=== PATIENT | male | born 1930 | race Caucasian/White ===

== ENCOUNTER 2016-07-10 09:46 | Outpatient (CLI) | payer MEDICARE, OTHER ==
[2016-07-10 10:14] LABS: Hemoglobin 12.3 g/dL (14.0-18.0); Mean Corpuscular Hemoglobin 27.9 pg (27.0-31.0); Mean Corpuscular Volume 84.4 fl (80.0-94.0); Mean Platelet Volume 8.1 fL (7.4-10.4); Platelet Count 182 thou/uL (130-400); RBC Distribution Width 16.7 % (11.5-14.5); Red Blood Cell (RBC) Count 4.42 mill/uL (4.70-6.10); White Blood Cell (WBC) Count 3.7 thou/uL (4.8-10.8)
[2016-07-10 10:43] LABS: ALT (SGPT) 13 U/L (0-55); AST (SGOT) 18 U/L (5-34); Albumin 3.8 g/dL (3.4-4.8); Alkaline Phosphatase 93 U/L (40-150); Anion Gap 12 mmol/L (10-20); BUN (Urea Nitrogen) 20 mg/dL (8.4-25.7); Bilirubin, Total 0.4 mg/dL (0.2-1.2); CRP (Inflammatory) 0.54 mg/dL (= or < 0.5); Calc. Creatinine Clearance 0 mL/min (70-130); Calcium 9.2 mg/dL (7.8-10.44); Carbon Dioxide 26 mmol/L (23-31); Chloride 106 mmol/L (98-107); Estimated GFR-MDRD 64; Globulin 2.1 g/dL (2.4-3.5); Glucose 126 mg/dL (83-110); Potassium 4.3 mmol/L (3.5-5.1); Protein, Total 5.9 g/dL (5.8-8.1); Sodium 140 mmol/L (136-145)
== END 2016-07-10 09:47 | disposition home or self-care (01) ==
LOC: MADLAB 09:46
PROVIDERS: ATTEND Internal Medicine Rheumatology
DX: M05.9 Rheumatoid arthritis with rheumatoid factor, unspecified (principal); Z79.899 Other long term (current) drug therapy
CPT/HCPCS: 36415; 80053; 85027; 85652; 86140

== ENCOUNTER 2016-08-06 05:30 | Outpatient (CLI) | payer MEDICARE, OTHER ==
[2016-08-06 05:59] LABS: #Eosinphils 0.2 thou/uL (0.0-0.7); #Lymphocytes 0.9 thou/uL (1.20-3.40); #Monocytes 0.5 thou/uL (0.11-0.59); #Neutrophils 1.8 thou/uL (1.40-6.50); %Basophils 1.4 % (0.0-1.0); %Eosinophils 4.9 % (0.0-10.0); %Lymphocytes 26.2 % (21.0-51.0); %Monocytes 14.2 % (0.0-10.0); %Neutrophils 53.4 % (42.0-75.0); Hemoglobin 11.8 g/dL (14.0-18.0); Mean Corpuscular HGB CONC 33.5 g/dL (32.0-36.0); Mean Corpuscular Hemoglobin 28.5 pg (27.0-31.0); Mean Corpuscular Volume 85.2 fl (80.0-94.0); Mean Platelet Volume 7.8 fL (7.4-10.4); Platelet Count 182 thou/uL (130-400); RBC Distribution Width 16.6 % (11.5-14.5); Red Blood Cell (RBC) Count 4.13 mill/uL (4.70-6.10); White Blood Cell (WBC) Count 3.4 thou/uL (4.8-10.8)
[2016-08-06 06:25] LABS: MDiff Complete? YES; Manual Diff?? NO
[2016-08-06 06:51] LABS: ALT (SGPT) 13 U/L (0-55); AST (SGOT) 20 U/L (5-34); Albumin 3.4 g/dL (3.4-4.8); Alkaline Phosphatase 90 U/L (40-150); Anion Gap 13 mmol/L (10-20); BUN (Urea Nitrogen) 24 mg/dL (8.4-25.7); Bilirubin, Direct 0.2 mg/dL (0.1-0.3); Bilirubin, Total 0.4 mg/dL (0.2-1.2); Calc. Creatinine Clearance 0 mL/min (70-130); Calcium 8.8 mg/dL (7.8-10.44); Carbon Dioxide 22 mmol/L (23-31); Cardiac Risk 3.7 (Less than 4.5); Chloride 110 mmol/L (98-107); Cholesterol 152 mg/dL (< 200 Desired); Estimated GFR-MDRD 69; Glucose 96 mg/dL (83-110); HDL Cholesterol 41 mg/dL (>60 Neg Risk); LDL Cholesterol, Calculated 90 mg/dL; Potassium 4.2 mmol/L (3.5-5.1); Protein, Total 5.5 g/dL (5.8-8.1); Sodium 141 mmol/L (136-145); Triglycerides 106 mg/dL (Less than 150)
== END 2016-08-06 05:31 | disposition home or self-care (01) ==
LOC: MADLAB 05:30
PROVIDERS: ATTEND Family Medicine
DX: I10 Essential (primary) hypertension (principal)
CPT/HCPCS: 36415; 80048; 80061; 80076; 85025

== ENCOUNTER 2017-04-10 10:14 | Emergency (ER) | payer MEDICARE, OTHER ==
[2017-04-10 11:27] LABS: #Basophils 0.1 thou/uL (0.0-0.2); #Eosinphils 0.1 thou/uL (0.0-0.7); #Lymphocytes 0.4 thou/uL (1.20-3.40); #Monocytes 0.5 thou/uL (0.11-0.59); #Neutrophils 3.8 thou/uL (1.40-6.50); %Basophils 1.9 % (0.0-1.0); %Eosinophils 1.8 % (0.0-10.0); %Lymphocytes 8.4 % (21.0-51.0); %Monocytes 9.9 % (0.0-10.0); Hemoglobin 11.1 g/dL (14.0-18.0); Mean Corpuscular HGB CONC 34.7 g/dL (32.0-36.0); Mean Corpuscular Hemoglobin 33.9 pg (27.0-31.0); Mean Corpuscular Volume 97.8 fl (80.0-94.0); Mean Platelet Volume 6.6 fL (7.4-10.4); Platelet Count 192 thou/uL (130-400); RBC Distribution Width 15.7 % (11.5-14.5); Red Blood Cell (RBC) Count 3.27 mill/uL (4.70-6.10); White Blood Cell (WBC) Count 4.8 thou/uL (4.8-10.8)
[2017-04-10 11:46] LABS: CKMB 2.6 ng/mL (0-6.6); Troponin I 0.011 ng/mL (< 0.028)
[2017-04-10 11:48] LABS: ALT (SGPT) 14 U/L (8-55); AST (SGOT) 16 U/L (5-34); Albumin 3.2 g/dL (3.4-4.8); Alkaline Phosphatase 73 U/L (40-150); Anion Gap 13 mmol/L (10-20); BUN (Urea Nitrogen) 23 mg/dL (8.4-25.7); Bilirubin, Total 0.3 mg/dL (0.2-1.2); Calc. Creatinine Clearance 0 mL/min (70-130); Calcium 8.6 mg/dL (7.8-10.44); Carbon Dioxide 23 mmol/L (23-31); Chloride 108 mmol/L (98-107); Estimated GFR-MDRD 76; Globulin 2.2 g/dL (2.4-3.5); Glucose 106 mg/dL (83-110); Potassium 3.8 mmol/L (3.5-5.1); Protein, Total 5.4 g/dL (5.8-8.1); Sodium 140 mmol/L (136-145)
== END 2017-04-10 13:05 | disposition home or self-care (01) ==
LOC: MADERS 10:14
DX: R53.1 Weakness (principal); N40.0 Benign prostatic hyperplasia without lower urinary tract symptoms; I25.10 Atherosclerotic heart disease of native coronary artery without angina pectoris; E78.5 Hyperlipidemia, unspecified; I10 Essential (primary) hypertension; Z79.82 Long term (current) use of aspirin; Z79.899 Other long term (current) drug therapy
CPT/HCPCS: 36415; 82553; 83735; 84443; 84484; 93005

== ENCOUNTER 2017-11-05 08:11 | Outpatient (CLI) | payer MEDICARE, OTHER ==
[2017-11-05 08:49] LABS: ALT (SGPT) 15 U/L (8-55); AST (SGOT) 19 U/L (5-34); Albumin 3.8 g/dL (3.4-4.8); Alkaline Phosphatase 82 U/L (40-150); Anion Gap 13 mmol/L (10-20); BUN (Urea Nitrogen) 24 mg/dL (8.4-25.7); Bilirubin, Total 0.5 mg/dL (0.2-1.2); Calc. Creatinine Clearance 0 mL/min (70-130); Calcium 9.1 mg/dL (7.8-10.44); Carbon Dioxide 25 mmol/L (23-31); Cardiac Risk 3.4 (Less than 4.5); Chloride 110 mmol/L (98-107); Cholesterol 176 mg/dl (< 200 Desired); Estimated GFR-MDRD 66; Globulin 2.1 g/dL (2.4-3.5); Glucose 96 mg/dL (83-110); HDL Cholesterol 52 mg/dL (>60 Neg Risk); LDL Cholesterol, Calculated 110 mg/dL; Protein, Total 5.9 g/dL (5.8-8.1); Sodium 144 mmol/L (136-145); Triglycerides 69 mg/dL (Less than 150)
[2017-11-05 09:09] LABS: #Basophils 0.1 thou/uL (0.0-0.2); #Eosinphils 0.3 thou/uL (0.0-0.7); #Lymphocytes 0.6 thou/uL (1.20-3.40); #Monocytes 0.3 thou/uL (0.11-0.59); #Neutrophils 3.9 thou/uL (1.40-6.50); %Basophils 1.9 % (0.0-1.0); %Eosinophils 5.5 % (0.0-10.0); %Lymphocytes 11.1 % (21.0-51.0); %Monocytes 6.7 % (0.0-10.0); %Neutrophils 74.9 % (42.0-75.0); Hemoglobin 11.6 g/dL (14.0-18.0); Mean Corpuscular HGB CONC 32.5 g/dL (32.0-36.0); Mean Corpuscular Hemoglobin 30.6 pg (27.0-31.0); Mean Corpuscular Volume 93.9 fL (78.0-98.0); Mean Platelet Volume 6.3 fL (7.4-10.4); Platelet Count 200 thou/uL (130-400); Red Blood Cell (RBC) Count 3.81 mill/uL (4.70-6.10); White Blood Cell (WBC) Count 5.2 thou/uL (4.8-10.8)
== END 2017-11-05 08:12 | disposition home or self-care (01) ==
LOC: MADLABBHPM 08:11
PROVIDERS: ATTEND Family Medicine
DX: I12.9 Hypertensive chronic kidney disease with stage 1 through stage 4 chronic kidney disease, or unspecified chronic kidney disease (principal); N18.9 Chronic kidney disease, unspecified; D63.1 Anemia in chronic kidney disease; E78.00 Pure hypercholesterolemia, unspecified
CPT/HCPCS: 36415; 80053; 80061; 85025

== ENCOUNTER 2018-07-14 09:51 | Outpatient (CLI) | payer MEDICARE, OTHER ==
[2018-07-14 10:27] LABS: #Basophils 0.1 thou/uL (0.0-0.2); #Eosinphils 0.2 thou/uL (0.0-0.7); #Lymphocytes 0.7 thou/uL (1.20-3.40); #Monocytes 0.5 thou/uL (0.11-0.59); #Neutrophils 3.5 thou/uL (1.40-6.50); %Basophils 1.2 % (0.0-1.0); %Eosinophils 4.2 % (0.0-10.0); %Lymphocytes 14.6 % (21.0-51.0); %Monocytes 9.2 % (0.0-10.0); %Neutrophils 70.8 % (42.0-75.0); Mean Corpuscular HGB CONC 32.2 g/dL (32.0-36.0); Mean Corpuscular Hemoglobin 30.1 pg (27.0-31.0); Mean Corpuscular Volume 93.6 fL (78.0-98.0); Mean Platelet Volume 6.2 fL (7.4-10.4); Platelet Count 274 thou/uL (130-400); RBC Distribution Width 16.5 % (11.5-14.5); Red Blood Cell (RBC) Count 2.98 mill/uL (4.70-6.10)
== END 2018-07-14 09:52 | disposition home or self-care (01) ==
LOC: MADLABBHPM 09:51
PROVIDERS: ATTEND Family Medicine
DX: I87.2 Venous insufficiency (chronic) (peripheral) (principal); K92.2 Gastrointestinal hemorrhage, unspecified
CPT/HCPCS: 85025

== ENCOUNTER 2018-07-23 10:06 | Outpatient (CLI) | payer MEDICARE, OTHER ==
[2018-07-23 11:43] LABS: #Basophils 0.1 thou/uL (0.0-0.2); #Eosinphils 0.3 thou/uL (0.0-0.7); #Lymphocytes 1.1 thou/uL (1.20-3.40); #Monocytes 0.3 thou/uL (0.11-0.59); #Neutrophils 4.2 thou/uL (1.40-6.50); %Basophils 1.1 % (0.0-1.0); %Eosinophils 4.7 % (0.0-10.0); %Lymphocytes 18.3 % (21.0-51.0); %Monocytes 4.6 % (0.0-10.0); %Neutrophils 71.2 % (42.0-75.0); Hemoglobin 9.3 g/dL (14.0-18.0); Mean Corpuscular HGB CONC 32.4 g/dL (32.0-36.0); Mean Corpuscular Hemoglobin 30.6 pg (27.0-31.0); Mean Corpuscular Volume 94.4 fL (78.0-98.0); Mean Platelet Volume 6.1 fL (7.4-10.4); Platelet Count 249 thou/uL (130-400); RBC Distribution Width 17.9 % (11.5-14.5); Red Blood Cell (RBC) Count 3.03 mill/uL (4.70-6.10); White Blood Cell (WBC) Count 5.9 thou/uL (4.8-10.8)
== END 2018-07-23 10:07 | disposition home or self-care (01) ==
LOC: MADLABBHPM 10:06
PROVIDERS: ATTEND Family Medicine
DX: K92.2 Gastrointestinal hemorrhage, unspecified (principal)
CPT/HCPCS: 85025

== ENCOUNTER 2018-08-04 10:02 | Outpatient (CLI) | payer MEDICARE, OTHER ==
[2018-08-04 11:55] LABS: #Basophils 0.1 thou/uL (0.0-0.2); #Eosinphils 0.2 thou/uL (0.0-0.7); #Lymphocytes 0.5 thou/uL (1.20-3.40); #Monocytes 0.2 thou/uL (0.11-0.59); #Neutrophils 2.9 thou/uL (1.40-6.50); %Basophils 1.6 % (0.0-1.0); %Lymphocytes 13.2 % (21.0-51.0); %Monocytes 5.8 % (0.0-10.0); %Neutrophils 74.5 % (42.0-75.0); Mean Corpuscular HGB CONC 32.7 g/dL (32.0-36.0); Mean Corpuscular Hemoglobin 30.7 pg (27.0-31.0); Mean Corpuscular Volume 93.9 fL (78.0-98.0); Mean Platelet Volume 6.5 fL (7.4-10.4); Platelet Count 158 thou/uL (130-400); RBC Distribution Width 18.9 % (11.5-14.5); Red Blood Cell (RBC) Count 2.94 mill/uL (4.70-6.10); White Blood Cell (WBC) Count 3.9 thou/uL (4.8-10.8)
[2018-08-04 13:27] LABS: MDiff Complete? YES
[2018-08-04 13:28] LABS: Anisocytosis SLIGHT = 6-15 cells (100X) (0-5/hpf); Hypochromia SLIGHT = 6-15 cells (100X) (0-5/hpf); Platelet Morphology Comment Appears Adequate
== END 2018-08-04 10:03 | disposition home or self-care (01) ==
LOC: MADLABBHPM 10:02
PROVIDERS: ATTEND Family Medicine
DX: K92.2 Gastrointestinal hemorrhage, unspecified (principal)
CPT/HCPCS: 85025

== ENCOUNTER 2018-08-11 11:03 | Outpatient (CLI) | payer MEDICARE, OTHER ==
[2018-08-11 12:30] LABS: #Basophils 0.1 thou/uL (0.0-0.2); #Eosinphils 0.2 thou/uL (0.0-0.7); #Lymphocytes 0.6 thou/uL (1.20-3.40); #Monocytes 0.2 thou/uL (0.11-0.59); #Neutrophils 3.8 thou/uL (1.40-6.50); %Basophils 1.2 % (0.0-1.0); %Eosinophils 4.2 % (0.0-10.0); %Lymphocytes 12.1 % (21.0-51.0); %Monocytes 4.6 % (0.0-10.0); %Neutrophils 77.9 % (42.0-75.0); Hemoglobin 9.9 g/dL (14.0-18.0); Mean Corpuscular HGB CONC 30.8 g/dL (32.0-36.0); Mean Corpuscular Hemoglobin 29.5 pg (27.0-31.0); Mean Corpuscular Volume 95.9 fL (78.0-98.0); Mean Platelet Volume 5.8 fL (7.4-10.4); Platelet Count 189 thou/uL (130-400); Red Blood Cell (RBC) Count 3.35 mill/uL (4.70-6.10); White Blood Cell (WBC) Count 4.9 thou/uL (4.8-10.8)
[2018-08-11 12:33] LABS: Ovalocytes SLIGHT = 2-5 cells (100X) (0-1/hpf)
[2018-08-11 12:34] LABS: Anisocytosis SLIGHT = 6-15 cells (100X) (0-5/hpf); Platelet Morphology Comment Appears Adequate
== END 2018-08-11 11:04 | disposition home or self-care (01) ==
LOC: MADLABBHPM 11:03
PROVIDERS: ATTEND Family Medicine
DX: K92.2 Gastrointestinal hemorrhage, unspecified (principal)
CPT/HCPCS: 85025

== ENCOUNTER 2018-08-18 13:54 | Outpatient (CLI) | payer MEDICARE, OTHER ==
[2018-08-18 15:07] LABS: #Lymphocytes 0.4 thou/uL (1.20-3.40); #Monocytes 0.1 thou/uL (0.11-0.59); #Neutrophils 3.7 thou/uL (1.40-6.50); %Basophils 1.1 % (0.0-1.0); %Eosinophils 1.1 % (0.0-10.0); %Lymphocytes 8.7 % (21.0-51.0); %Monocytes 3.4 % (0.0-10.0); %Neutrophils 85.8 % (42.0-75.0); Anisocytosis SLIGHT = 6-15 cells (100X) (0-5/hpf); Hemoglobin 10.1 g/dL (14.0-18.0); Hypochromia SLIGHT = 6-15 cells (100X) (0-5/hpf); MDiff Complete? YES; Mean Corpuscular HGB CONC 31.5 g/dL (32.0-36.0); Mean Corpuscular Hemoglobin 29.9 pg (27.0-31.0); Mean Platelet Volume 6.3 fL (7.4-10.4); Platelet Count 215 thou/uL (130-400); Platelet Morphology Comment Appears Adequate; RBC Distribution Width 19.3 % (11.5-14.5); Red Blood Cell (RBC) Count 3.38 mill/uL (4.70-6.10); White Blood Cell (WBC) Count 4.3 thou/uL (4.8-10.8)
== END 2018-08-18 13:55 | disposition home or self-care (01) ==
LOC: MADLABBHPM 13:54
PROVIDERS: ATTEND Family Medicine
DX: K92.2 Gastrointestinal hemorrhage, unspecified (principal)
CPT/HCPCS: 85025

== ENCOUNTER 2018-11-07 09:20 | Outpatient (CLI) | payer MEDICARE, OTHER ==
[2018-11-07 09:35] LABS: Anion Gap 15 mmol/L (10-20); BUN (Urea Nitrogen) 24 mg/dL (8.4-25.7); Calc. Creatinine Clearance 0 mL/min (70-130); Calcium 8.5 mg/dL (7.8-10.44); Carbon Dioxide 27 mmol/L (23-31); Chloride 109 mmol/L (98-107); Estimated GFR-MDRD 41; Glucose 109 mg/dL (83-110); Potassium 4.7 mmol/L (3.5-5.1); Sodium 146 mmol/L (136-145)
[2018-11-07 10:38] LABS: #Basophils 0.1 thou/uL (0.0-0.2); #Eosinphils 0.1 thou/uL (0.0-0.7); #Lymphocytes 0.3 thou/uL (1.20-3.40); #Monocytes 0.4 thou/uL (0.11-0.59); #Neutrophils 1.9 thou/uL (1.40-6.50); %Eosinophils 4.5 % (0.0-10.0); %Lymphocytes 11.8 % (21.0-51.0); %Monocytes 12.5 % (0.0-10.0); %Neutrophils 69.2 % (42.0-75.0); Mean Corpuscular HGB CONC 31.2 g/dL (32.0-36.0); Mean Corpuscular Hemoglobin 30.3 pg (27.0-31.0); Mean Platelet Volume 5.7 fL (7.4-10.4); Platelet Count 173 thou/uL (130-400); Platelet Morphology Comment Appears Adequate; RBC Distribution Width 19.3 % (11.5-14.5); RBC Morphology Normal; White Blood Cell (WBC) Count 2.8 thou/uL (4.8-10.8)
[2018-11-07 10:42] LABS: MDiff Complete? YES
== END 2018-11-07 09:21 | disposition home or self-care (01) ==
LOC: MADLABBHPM 09:20
PROVIDERS: ATTEND Family Medicine
DX: N18.9 Chronic kidney disease, unspecified (principal); D63.1 Anemia in chronic kidney disease
CPT/HCPCS: 80048; 85025

== ENCOUNTER 2018-11-12 10:11 | Emergency (ER) | payer MEDICARE, OTHER ==
--- NOTE | 2018-11-12 11:30 | RAD ---
XR Chest 1 View Portable History: Fever and weakness Comparison: Radiograph 2016 Findings: There is be recording device projecting over the left upper hemithorax. Heart size mildly e nlarged. Mild pulmonary venous congestion. No pneumothorax. No effusion. Calcific tendinosis both rotator cuffs. Impression: Chronic findings. No acute intrathoracic abnormality.
[2018-11-12 11:33] LABS: ALT (SGPT) 20 U/L (8-55); AST (SGOT) 20 U/L (5-34); Albumin 3.6 g/dL (3.4-4.8); Alkaline Phosphatase 89 U/L (40-150); Anion Gap 14 mmol/L (10-20); BUN (Urea Nitrogen) 23 mg/dL (8.4-25.7); Bilirubin, Total 0.2 mg/dL (0.2-1.2); Calc. Creatinine Clearance 0 mL/min (70-130); Calcium 8.8 mg/dL (7.8-10.44); Carbon Dioxide 27 mmol/L (23-31); Chloride 104 mmol/L (98-107); Estimated GFR-MDRD 38; Globulin 2.4 g/dL (2.4-3.5); Glucose 116 mg/dL (83-110); Potassium 4.2 mmol/L (3.5-5.1); Sodium 141 mmol/L (136-145)
[2018-11-12 11:43] LABS: Band 1 % (5-11); Lymphocytes 16 % (21-51); MDiff Complete? YES; Mean Corpuscular HGB CONC 31.6 g/dL (32.0-36.0); Mean Corpuscular Hemoglobin 30.2 pg (27.0-31.0); Mean Corpuscular Volume 95.5 fL (78.0-98.0); Mean Platelet Volume 6.1 fL (7.4-10.4); Monocytes 5 % (0-10); Neutrophil 78 % (42-75); Platelet Count 193 thou/uL (130-400); Platelet Morphology Comment Appears Adequate; RBC Distribution Width 17.8 % (11.5-14.5); Red Blood Cell (RBC) Count 3.65 mill/uL (4.70-6.10); White Blood Cell (WBC) Count 3.7 thou/uL (4.8-10.8)
[2018-11-12 11:45] LABS: Bilirubin Negative (Negative); Blood, Urine Trace (Negative); Clarity Clear (Clear); Glucose, Urine (Dipstick) Negative (Negative); Leukocyte Negative (Negative); Nitrite Negative (Negative); Protein, Urine (Dipstick) 30 mg/dL (Neg-Trace)
[2018-11-12 11:50] LABS: Bacteria/HPF Rare-Few HPF (None Seen); RBC/HPF 0-3 HPF (0-3); Squamous Epithelial 0-3 HPF (0-3); WBC/HPF None Seen HPF (0-3)
== END 2018-11-12 12:48 | disposition home or self-care (01) ==
LOC: MADERS 10:11
DX: R50.9 Fever, unspecified (principal); R53.1 Weakness; R29.6 Repeated falls
CPT/HCPCS: 36415; 71045; 80053; 81003; 81015; 84484; 85025; 93005

== ENCOUNTER 2019-05-25 16:35 | Inpatient (IN) | payer MEDICARE, OTHER ==
[2019-05-25] MEDS ORDERED: Bisacodyl 10 MG SUPP PR PRN (17:40)
[2019-05-25] MEDS ORDERED: Sodium Chloride 0.65% Nasal 44 ML BOT EA NARE PRN (17:47)
[2019-05-25] MEDS ORDERED: Nitroglycerin 0.4 MG TAB (25 Tab Bottle) SL PRN (17:51)
[2019-05-25] MEDS: Atorvastatin Calcium 10 MG TAB PO SCH (20:07)
[2019-05-25] MEDS: Doxycycline 100 MG CAP PO SCH (20:08)
[2019-05-25] MEDS: Emollient 15 oz bottle 450 ML, Triamcinolone Acetonide 200 MG TOP SCH (20:10)
[2019-05-26 05:45] LABS: #Basophils 0.1 thou/uL (0.0-0.2); #Eosinphils 0.2 thou/uL (0.0-0.7); #Lymphocytes 0.6 thou/uL (1.20-3.40); #Monocytes 0.7 thou/uL (0.11-0.59); %Basophils 1.2 % (0.0-1.0); %Eosinophils 3.3 % (0.0-10.0); %Neutrophils 73.5 % (42.0-75.0); Hemoglobin 10.8 g/dL (14.0-18.0); Mean Corpuscular HGB CONC 32.1 g/dL (32.0-36.0); Mean Corpuscular Hemoglobin 29.3 pg (27.0-31.0); Mean Corpuscular Volume 91.2 fL (78.0-98.0); Mean Platelet Volume 7.1 fL (7.4-10.4); Platelet Count 194 thou/uL (130-400); RBC Distribution Width 14.7 % (11.5-14.5); Red Blood Cell (RBC) Count 3.68 mill/uL (4.70-6.10); White Blood Cell (WBC) Count 5.5 thou/uL (4.8-10.8)
[2019-05-26 06:06] LABS: ALT (SGPT) 29 U/L (8-55); AST (SGOT) 31 U/L (5-34); Albumin 2.8 g/dL (3.4-4.8); Alkaline Phosphatase 64 U/L (40-110); Anion Gap 14 mmol/L (10-20); BUN (Urea Nitrogen) 25 mg/dL (8.4-25.7); Bilirubin, Total 0.4 mg/dL (0.2-1.2); Calc. Creatinine Clearance 30 mL/min (70-130); Calcium 11.2 mg/dL (7.8-10.44); Carbon Dioxide 24 mmol/L (23-31); Chloride 111 mmol/L (98-107); Estimated GFR-MDRD 43; Globulin 2.5 g/dL (2.4-3.5); Glucose 81 mg/dL (83-110); Potassium 3.6 mmol/L (3.5-5.1); Protein, Total 5.3 g/dL (5.8-8.1); Sodium 145 mmol/L (136-145)
[2019-05-26] MEDS: Doxycycline 100 MG CAP PO SCH ×2 (08:39→20:18)
[2019-05-26] MEDS: Amiodarone 200 MG TAB PO SCH (08:40)
[2019-05-26] MEDS: predniSONE 10 MG TAB PO SCH (08:40)
[2019-05-26] MEDS: Folic Acid 1 MG TAB PO SCH (08:40)
[2019-05-26] MEDS: Potassium Chloride 10 MEQ TAB PO SCH (08:40)
[2019-05-26] MEDS: Emollient 15 oz bottle 450 ML, Triamcinolone Acetonide 200 MG TOP SCH ×2 (08:41→20:19)
[2019-05-26] MEDS: Polyethylene Glycol 3350 17 GM Packet PO SCH (08:41)
[2019-05-26] MEDS ORDERED: Aspirin Chewable 81 MG TAB PO SCH (09:00)
--- NOTE | 2019-05-26 09:01 | HP ---
The patient was admitted to [facility] on the afternoon of 05/25/2019. CHIEF COMPLAINT: Severe weakness. HISTORY OF PRESENT ILLNESS: The patient is an 89-year-old white male, who has a history of hypertension, coronary artery disease, rheumatoid arthritis, and chronic kidney disease. He has had a continual decline in his health, manifests with continued weakness and frequent falls. He has had frequent problems with anterior nose bleeds and sinusitis. He had been seen by myself on 04/28 with a sinus infection and placed on amoxicillin. He did not indicate that he was allergic to nor was this on his record. The patient though did develop a generalized rash. He was seen in the emergency room and apparently had a fever. The patient was seen in the emergency room on 05/03. CT scan of the brain confirmed sinus infection. He was placed on a different antibiotic. He was admitted apparently for observation and then discharged to [facility] for rehab, where he stayed until 05/15/2019. He was discharged home, where he had 24-hour caregivers. At the time of his discharge, he was ambulating with a walker. The patient though was referred back to the emergency room on 05/20/2019, because of increasing weakness, inability to walk , and on examination, he was found to have a lactic acid of 3.2. His creatinine had risen to 1.94. He was admitted. He was initially treated with IV fluids with gradual normalization of the lactic acid. He had acute kidney injury on chronic kidney disease, was seen by the crane oiler. Renal ultrasound showed no evidence of obstruction. With cautious hydration, the kidney function improved. He also was found to have mild hypercalcemia with a low parathyroid hormone. Calcium supplementation had been stopped. He has some mild chronic anemia and has severe edema, felt to be secondary to his hypoalbuminemia. He was left extremely weak , but was able to, with help, take a few steps and sit up in a chair. He was placed on doxycycline apparently for the sinus infection. He was left extremely weak. He developed a lot of swelling, particularly in his right arm. The acute kidney injury improved. He was transferred to [facility] on 05/25/2019, due to his severe generalized weakness and deconditioning for purpose of PT and OT. He was recommended to receive the doxycycline 100 mg b.i.d. for four more doses. He was also receiving Claritin 10 mg daily for the sinus infection. The patient was seen soon after his arrival and he was able to give only limited history. He is very hard of hearing. He said he was just weak. He has been able to get up a little bit only with assistance. He said he has had a lot of swelling in his hands. He says the rash is better. He does itch. At home, he uses Blaire/Kenalog, which helps a lot. He has a lot of swelling in his arms and some in his legs. PAST MEDICAL HISTORY: Hospitalized at [facility] from 05/20 to 05/25 for acute on chronic kidney injury. Lactic acidosis had resolved with just hydration, felt to be secondary to dehydration and acute kidney injury, hypokalemia, hypercalcemia with normal parathyroid level and edema with hypoalbuminemia. The patient has coronary artery disease, has undergone coronary artery bypass in 1992 and has also had stents placed in June of 2017, presently asymptomatic. He has hypertension, but lately has had some hypotensive episodes and he had previously been on lisinopril, which had been stopped. He has had a history of TIA, manifests with momentary visual loss in 2008, no recurrence; severe hearing impairment; rheumatoid arthritis that is controlled with low-dose steroids; constipation; gout. EGD in June 2018 showed GERD and hiatal hernia. No evidence of active bleeding. There was some erosive esophagitis without bleeding. Repeated episodes of anterior epistasis secondary to dry mucosa and secondary to trauma from picking at the nose, disequilibrium. Previous colonoscopy in 2008 with removal of a benign polyp. Colonoscopy in 2003, normal; TURP and dilation of urethral stricture in 1997. Hyperlipidemia, present gait abnormality, atrial fibrillation. Had been on Plavix and aspirin, which were recently stopped due to intractable anterior nosebleeds. PRESENT MEDICINES: 1. Amiodarone 100 mg. 2. Aspirin 81 mg daily. 3. Calcitonin 1 spray nasal alternate nares daily. 4. Folic acid 1 mg daily. 5. Heparin 5000 units every 8 hours. 6. Pantoprazole 40 mg daily. 7. KCl 10 mEq daily. 8. Prednisone 5 mg daily. 9. Doxycycline 100 mg b.i.d. four doses will need to be given to complete his course of therapy. 10. Claritin 10 mg daily. ALLERGIES: PENICILLIN; RASH. SIMVASTATIN; LEG CRAMPS. LISINOPRIL; COUGH, BLURRED VISION, HYPOTENSION. CODEINE, ZETIA; LEG CRAMPS. PRAVASTATIN; LEG CRAMPS. INDOMETHACIN; NAUSEA. HYDROCODONE; CONSTIPATION. NEURONTIN, CRESTOR; CRAMPS IN THE LEGS. MIRTAZAPINE; OVER-SEDATION. BACTRIM DS; RASH; CEPHALEXIN; RASH. TORSEMIDE; RASH. REVIEW OF SYSTEMS: CONSTITUTIONAL: The patient said he is just weak. Has not had a lot of much appetite. HEAD AND NECK: The patient says his nosebleeds have been a little bit less frequent. He had been on aspirin and Plavix that were stopped. He said he did have to strain for bowel movement and it caused a little bit of bleeding in the right nostril. PULMONARY: No shortness of breath. CARDIOVASCULAR: No chest pain. GI: No nausea, vomiting. Constipated. No abdominal pain. : No complaints. ADLS: Recently, the patient is able to feed himself. He is able to walk short distances only with help and a walker. The patient needs help for dressing and bathing. Instrumental ADLs, needs help with all of these. HABITS: Alcohol, none. Tobacco, none. SOCIAL HISTORY: The patient is . He lives at home and has caregivers there to assist his . Lives there, but is bed confined and has advanced Alzheimer disease. PHYSICAL EXAMINATION: GENERAL: Shows an 89-year-old white male, who is sitting up in bed. He is extremely hard of hearing even with his hearing aids in. HEENT: His head is atraumatic. Eyes, pupils equal, round, and reactive. Ears , the patient wearing hearing aids in both ears. Nose, mucosa is dry. There is a little dried blood in the right nostril. Mouth and throat, normal. NECK: Carotids are equal and strong. LUNGS: Clear. HEART: Regular rate. No murmurs. ABDOMEN: Soft. No organomegaly. No areas of tenderness. SKIN: The patient has areas of red irritation, some in the arms and the legs. He has a little areas of hyperpigmentation from previous rash. His skin is very dry. EXTREMITIES: He has moderate edema of the right arm, particularly in the elbow and forearm. There had been a bandage on the right arm with the Coban that had caused some increased edema distal to this, this was removed. NEUROLOGIC: The patient is alert, recognizes me, knows he is in [place]. He has severe generalized weakness that is nonfocal. EXTREMITIES: The patient has enlargement of his MP joints of the hand. They are little red. He says though they do not hurt. The hands have typical rheumatoid arthritic changes. IMPRESSION: 1. Severe generalized weakness and deconditioning. a. Gradual decline in his general strength and conditioning. b. Marked decline in his ADLs with acute kidney injury and lactic acidosis prompting hospitalization at [facility] [place] from 05/20 to 05/25/2019. c. Requiring assistance with his ADLs and all his instrumental ADLs. d. Hospitalized at [facility] at [place] from 05/20 to 2019 for acute on chronic kidney injury; lactic acidosis secondary to dehydration ; acute kidney injury, resolved with hydration; hypokalemia; hypercalcemia with normal parathyroid hormone. Ultrasound showed no obstructive renal disease. Atrial fibrillation. Rate controlled. Anemia. 2. Edema of the arms, right much worse than the left. 3. Hypoalbuminemia. 4. Rheumatoid arthritis. a. Controlled on low-dose prednisone. b. Presently no pain. 5. Coronary artery disease. a. Status post coronary artery bypass x4 in 1992. b. Status post stent in June 2017. c. Presently asymptomatic. 6. History of hypertension. a. Recently his lisinopril was stopped due to too tight controlled blood pressure. 7. Frequent anterior nose bleed secondary to dry nasal mucosa and contributed to by his Plavix and aspirin. 8. Paroxysmal atrial fibrillation. 9. Hearing impairment. 10. Recent history of hypercalcemia with low albumin, possibly secondary to calcium supplementation that was stopped. Parathyroid hormone normal. PLAN: The patient has been admitted to [facility] for PT and OT. We will continue his routine medication, elevate the arms for the edema. See orders. Job ID: [id number] MTDD
--- NOTE | 2019-05-26 10:29 | PRG ---
DATE OF SERVICE: 05/26/2019 SUBJECTIVE: The patient is sitting up on the edge of the bed. Physical therapy is with him and fixing to start his therapy this morning. The patient looks better this morning. He says he feels a little better. His daughter did come in last night and asked that his Lipitor be restarted. He had been on this before and stopped on the presumption that it may be contributing to some of his aches and pains. He has had trouble with the other statin drugs. We will try this, but if he begins to have more trouble, we will stop this. We also restarted his methotrexate which he receives 7.5 mg weekly. His daughter also said that his aspirin had been stopped. This was due to all the nosebleeds. OBJECTIVE: GENERAL: The patient is sitting on the edge of the bed. He looks much better. The edema in his arms is markedly improved. His skin looks better and he is more alert and a little more talkative, but does not have his hearing aids in and is very hard of hearing. VITAL SIGNS: Show a temperature 97.5, pulse 61, respiration 16, O2 saturation 95%, blood pressure 109/56. LUNGS: Clear. HEART: Irregular rate. EXTREMITIES: Upper extremities; edema particularly in the right arm has practically all resolved. Edema in the lower legs is resolved. Skin looks better. LABORATORY DATA: H and H 10.8 and 33.6, white cell count 5500 with 74% segs, 10 % lymphocytes, platelet count of 194,000. Sodium 145, potassium 3.6, BUN 25, creatinine 1.5, GFR 43, glucose 81, calcium 11.2, albumin 2.8. ASSESSMENT: 1. Generalized weakness and deconditioning. 2. Hospitalized at [facility] from 05/20 until 05/25 for marked decline in strength with severe weakness and inability to ambulate, with acute on chronic kidney injury, lactic acidosis from dehydration, chronic renal disease, hypokalemia, hypercalcemia, and sinusitis. 3. Hypoalbuminemia. 4. Edema particularly in the arms. a. Improved as of 05/26. 5. Hypertension. a. Controlled. 6. Coronary artery disease. a. Presently asymptomatic. 7. Paroxysmal atrial fibrillation. 8. Sinusitis, resolving. a. Completing Vibramycin as of 05/26/2019. 9. Rheumatoid arthritis. PLAN: We will continue present care. Continue PT and OT. I have stopped the aspirin due to his frequent nose bleeds. We will follow his calcium. Continue potassium supplementation. Job ID: [id number] NIKUNJ
[2019-05-26] MEDS: Atorvastatin Calcium 10 MG TAB PO SCH (20:18)
[2019-05-27] MEDS: predniSONE 10 MG TAB PO SCH (08:13)
[2019-05-27] MEDS: Doxycycline 100 MG CAP PO SCH ×2 (08:13→21:32)
[2019-05-27] MEDS: Folic Acid 1 MG TAB PO SCH (08:13)
[2019-05-27] MEDS: Amiodarone 200 MG TAB PO SCH (08:13)
[2019-05-27] MEDS: Potassium Chloride 10 MEQ TAB PO SCH (08:13)
[2019-05-27] MEDS: Emollient 15 oz bottle 450 ML, Triamcinolone Acetonide 200 MG TOP SCH ×2 (08:14→21:32)
[2019-05-27] MEDS: Polyethylene Glycol 3350 17 GM Packet PO SCH (08:14)
--- NOTE | 2019-05-27 09:45 | PRG ---
DATE OF SERVICE: 05/27/2019 SUBJECTIVE: The patient is sitting up in a bedside chair. He said he is feeling better. He is working with therapist and occupational therapist, and they said he is doing better. He is walking some with his walker, but does need a little assistance to assist with his balance. OBJECTIVE: GENERAL: The patient is sitting up in a chair, looks much better, was talkative, very hard of hearing though. VITAL SIGNS: Temperature 97.4, pulse 78, respirations 16, O2 sat 91% on room air, and blood pressure 128/61. LUNGS: Clear. HEART: Regular rate. EXTREMITIES: Edema in the arms and legs has resolved. ASSESSMENT: 1. Severe generalized weakness and deconditioning. a. Gradual decline in his general strength and conditioning. b. Marked decline in his ADLs with acute kidney injury and lactic acidosis prompting hospitalization at [facility] from 05/20 to 05/25/2019. c. Requiring assistance with his ADLs and all his instrumental ADLs. d. Hospitalized at [facility] [place] from 05/20 to 2019 for acute on chronic kidney injury; lactic acidosis secondary to dehydration ; acute kidney injury, resolved with hydration; hypokalemia; hypercalcemia with normal parathyroid hormone. Ultrasound showed no obstructive renal disease. Atrial fibrillation. Rate controlled. Anemia. e. Improved. Ambulate with the use of a walker and contact assistance, requires some assistance with transfers as of 05/27/2019. 2. Edema of the arms, right much worse than the left. a. Resolved as of 05/27/2019. 3. Hypoalbuminemia. 4. Rheumatoid arthritis. a. Controlled on low-dose prednisone. b. Presently no pain. 5. Coronary artery disease. a. Status post coronary artery bypass x4 in 1992. b. Status post stent in June 2017. c. Presently asymptomatic. 6. History of hypertension. a. Recently his lisinopril was stopped due to too tight controlled blood pressure. 7. Frequent anterior nose bleed secondary to dry nasal mucosa and contributed to by his Plavix and aspirin. a. No recurrence of nosebleeds as of 05/27/2019. 8. Paroxysmal atrial fibrillation. 9. Hearing impairment. 10. Recent history of hypercalcemia with low albumin, possibly secondary to calcium PLAN: Continue PT/OT. The patient has scheduled appointment to see his stained glass glazier helper at [facility], Dr. Sonny, tomorrow. His daughter plans on taking him. He also has over the next few weeks appointments with several other of the specialists. Job ID: [id number] NIKUNJ
[2019-05-27] MEDS: Atorvastatin Calcium 10 MG TAB PO SCH (21:32)
--- NOTE | 2019-05-28 09:25 | PRG ---
DATE OF SERVICE: 05/28/2019 SUBJECTIVE: The patient said he is feeling better. He said the swelling in his arms has gone down. He is working very well with physical therapy. Therapist said that the patient is getting up with just contact assistance, also walked with a walker, which is someone standing by there just to assist. OBJECTIVE: GENERAL: The patient is sitting up in a bedside chair. He is alert , appears very comfortable, in no distress. VITAL SIGNS: Show temperature 97, pulse 68, respirations 20, O2 saturation 92% on room air, blood pressure 135/63. LUNGS: Clear. HEART: Regular rate. EXTREMITIES: Arms have resolved. SKIN: Continues to improve. ASSESSMENT: 1. Severe generalized weakness and deconditioning. a. Ambulates with the use of a walker and contact assistance. Transferring better with contact assistance as of 05/28/2019. b. Marked decline in his ADLs with acute kidney injury and lactic acidosis prompting hospitalization at [facility] from 05/20 to 05/25/2019. c. Requiring assistance with his ADLs and all his instrumental ADLs. d. Hospitalized at [facility] [place] from 05/20 to 2019 for acute on chronic kidney injury; lactic acidosis secondary to dehydration ; acute kidney injury, resolved with hydration; hypokalemia; hypercalcemia with normal parathyroid hormone. Ultrasound showed no obstructive renal disease. Atrial fibrillation. Rate controlled. Anemia. e. Improved. Ambulate with the use of a walker and contact assistance, requires some assistance with transfers as of 05/27/2019. 2. Edema of the arms, right much worse than the left. a. Resolved as of 05/27/2019. 3. Hypoalbuminemia. 4. Rheumatoid arthritis. a. Controlled on low-dose prednisone. b. Presently no pain. 5. Coronary artery disease. a. Status post coronary artery bypass x4 in 1992. b. Status post stent in June 2017. c. Presently asymptomatic. 6. History of hypertension. a. Recently his lisinopril was stopped due to too tight controlled blood pressure. 7. Frequent anterior nose bleed secondary to dry nasal mucosa and contributed to by his Plavix and aspirin. a. No recurrence of nosebleeds as of 05/28/2019. 8. Paroxysmal atrial fibrillation. 9. Hearing impairment. 10. Recent history of hypercalcemia with low albumin, possibly secondary to calcium PLAN: Continue present care. Continue PT and OT. The patient due to see his underground conduit installer, Dr. Dennis this afternoon. Job ID: [id number] MTDD
[2019-05-28] MEDS: Folic Acid 1 MG TAB PO SCH (09:36)
[2019-05-28] MEDS: Potassium Chloride 10 MEQ TAB PO SCH (09:36)
[2019-05-28] MEDS: predniSONE 10 MG TAB PO SCH (09:36)
[2019-05-28] MEDS: Amiodarone 200 MG TAB PO SCH (09:36)
[2019-05-28] MEDS: Polyethylene Glycol 3350 17 GM Packet PO SCH (09:36)
[2019-05-28] MEDS: Doxycycline 100 MG CAP PO SCH ×2 (09:36→21:48)
[2019-05-28] MEDS: Emollient 15 oz bottle 450 ML, Triamcinolone Acetonide 200 MG TOP SCH ×2 (09:37→21:49)
[2019-05-28] MEDS: Atorvastatin Calcium 10 MG TAB PO SCH (21:48)
[2019-05-29] MEDS: Potassium Chloride 10 MEQ TAB PO SCH (09:46)
[2019-05-29] MEDS: Polyethylene Glycol 3350 17 GM Packet PO SCH (09:46)
[2019-05-29] MEDS: Amiodarone 200 MG TAB PO SCH (09:46)
[2019-05-29] MEDS: Doxycycline 100 MG CAP PO SCH ×2 (09:46→21:54)
[2019-05-29] MEDS: predniSONE 10 MG TAB PO SCH (09:46)
[2019-05-29] MEDS: Folic Acid 1 MG TAB PO SCH (09:46)
[2019-05-29] MEDS: Emollient 15 oz bottle 450 ML, Triamcinolone Acetonide 200 MG TOP SCH ×2 (09:53→21:56)
[2019-05-29] MEDS: Atorvastatin Calcium 10 MG TAB PO SCH (21:54)
[2019-05-30] MEDS: predniSONE 10 MG TAB PO SCH (08:37)
[2019-05-30] MEDS: Amiodarone 200 MG TAB PO SCH (08:38)
[2019-05-30] MEDS: Doxycycline 100 MG CAP PO SCH ×2 (08:39→21:47)
[2019-05-30] MEDS: Methotrexate Sodium 2.5 MG TAB PO SCH (08:39)
[2019-05-30] MEDS: Folic Acid 1 MG TAB PO SCH (08:39)
[2019-05-30] MEDS: Polyethylene Glycol 3350 17 GM Packet PO SCH (08:40)
[2019-05-30] MEDS: Emollient 15 oz bottle 450 ML, Triamcinolone Acetonide 200 MG TOP SCH ×2 (08:41→21:52)
[2019-05-30] MEDS: Atorvastatin Calcium 10 MG TAB PO SCH (21:47)
[2019-05-31] MEDS: predniSONE 10 MG TAB PO SCH (08:24)
[2019-05-31] MEDS: Amiodarone 200 MG TAB PO SCH (08:24)
[2019-05-31] MEDS: Folic Acid 1 MG TAB PO SCH (08:25)
[2019-05-31] MEDS: Doxycycline 100 MG CAP PO SCH ×2 (08:25→21:43)
[2019-05-31] MEDS: Ubidecarenone 50 MG CAP PO SCH (08:26)
[2019-05-31] MEDS: Polyethylene Glycol 3350 17 GM Packet PO SCH (08:26)
[2019-05-31] MEDS: Emollient 15 oz bottle 450 ML, Triamcinolone Acetonide 200 MG TOP SCH ×2 (08:27→21:43)
[2019-05-31] MEDS: Atorvastatin Calcium 10 MG TAB PO SCH (21:43)
[2019-06-01] MEDS: predniSONE 10 MG TAB PO SCH (09:00)
[2019-06-01] MEDS: Ubidecarenone 50 MG CAP PO SCH (09:00)
[2019-06-01] MEDS: Polyethylene Glycol 3350 17 GM Packet PO SCH (09:00)
[2019-06-01] MEDS: Doxycycline 100 MG CAP PO SCH (09:00)
[2019-06-01] MEDS: Amiodarone 200 MG TAB PO SCH (09:01)
[2019-06-01] MEDS: Folic Acid 1 MG TAB PO SCH (09:01)
[2019-06-01] MEDS: Emollient 15 oz bottle 450 ML, Triamcinolone Acetonide 200 MG TOP SCH ×2 (09:02→21:48)
[2019-06-01] MEDS: Atorvastatin Calcium 10 MG TAB PO SCH (21:48)
[2019-06-02 06:05] LABS: Anion Gap 13 mmol/L (10-20); BUN (Urea Nitrogen) 42 mg/dL (8.4-25.7); Calc. Creatinine Clearance 27 mL/min (70-130); Calcium 11.4 mg/dL (7.8-10.44); Carbon Dioxide 27 mmol/L (23-31); Chloride 108 mmol/L (98-107); Estimated GFR-MDRD 37; Glucose 78 mg/dL (83-110); Potassium 4.4 mmol/L (3.5-5.1); Sodium 144 mmol/L (136-145)
[2019-06-02] MEDS: Polyethylene Glycol 3350 17 GM Packet PO SCH (08:40)
[2019-06-02] MEDS: Ubidecarenone 50 MG CAP PO SCH (08:41)
[2019-06-02] MEDS: predniSONE 10 MG TAB PO SCH (08:41)
[2019-06-02] MEDS: Amiodarone 200 MG TAB PO SCH (08:42)
[2019-06-02] MEDS: Folic Acid 1 MG TAB PO SCH (08:42)
[2019-06-02] MEDS: Emollient 15 oz bottle 450 ML, Triamcinolone Acetonide 200 MG TOP SCH ×2 (08:46→21:38)
--- NOTE | 2019-06-02 11:11 | PRG ---
DATE OF SERVICE: 06/02/2019 SUBJECTIVE: The patient thinks he is doing good. He feels good this morning. He is making continued progress with physical therapy. OBJECTIVE: GENERAL: The patient is sitting up in his chair, eating breakfast. He is alert and appears in no distress. VITAL SIGNS: Show a temperature 97.8, pulse 72, respirations 20, O2 saturation 95% on room air, and blood pressure 122/64. LUNGS: Clear. HEART: Regular rate. EXTREMITIES: No edema. LABORATORY DATA: Sodium 144, potassium 4.4, BUN 42, creatinine 1.47, GFR 37, calcium 11.4, and glucose 78. ASSESSMENT: 1. Severe generalized weakness and deconditioning. a. Ambulates with the use of a walker and contact assistance. Transferring better with contact assistance as of 05/28/2019. b. Marked decline in his ADLs with acute kidney injury and lactic acidosis prompting hospitalization at [facility] from 05/20 to 05/25/2019. c. Requiring assistance with his ADLs and all his instrumental ADLs. d. Hospitalized at [facility] [place] from 05/20 to 2019 for acute on chronic kidney injury; lactic acidosis secondary to dehydration; acute kidney injury, resolved with hydration; hypokalemia; hypercalcemia with normal parathyroid hormone. Ultrasound showed no obstructive renal disease. Atrial fibrillation. Rate controlled. Anemia. e. Improved. Ambulate with the use of a walker and contact assistance, requires some assistance with transfers as of 06/02/2019. 2. Edema of the arms, right much worse than the left. a. Resolved as of 05/27/2019. 3. Hypoalbuminemia. 4. Rheumatoid arthritis. a. Controlled on low-dose prednisone. b. Presently no pain. 5. Coronary artery disease. a. Status post coronary artery bypass x4 in 1992. b. Status post stent in June 2017. c. Presently asymptomatic. 6. History of hypertension. a. Recently his lisinopril was stopped due to too tight controlled blood pressure. 7. Frequent anterior nose bleed secondary to dry nasal mucosa and contributed to by his Plavix and aspirin. a. No recurrence of nosebleeds as of 05/28/2019. 8. Paroxysmal atrial fibrillation. 9. Hearing impairment. 10. Recent history of hypercalcemia with low albumin, possibly secondary to calcium 11. Chronic kidney disease. a. GFR 37 as of 06/02. Calcium 11.4 as of 06/02. PLAN: Continue present care. Job ID: [id number] MTDD
--- NOTE | 2019-06-02 11:13 | PRG ---
DATE OF SERVICE: 05/31/2019 SUBJECTIVE: The patient thinks he is doing better. He has a lot stronger than what he was when he came in. OBJECTIVE: GENERAL: The patient is sitting up in a chair, applying his moisturizer to his arms. He appears very comfortable. VITAL SIGNS: His temperature is 97.1, pulse 77, respiration 14, O2 saturation 96% on room air, blood pressure 126/60. LUNGS: Clear. HEART: Regular rate. SKIN: Looks much improved. The swelling on the extremities is gone. The rashes all essentially resolved. ASSESSMENT: 1. Severe generalized weakness and deconditioning. a. Ambulates with the use of a walker and contact assistance. Transferring better with contact assistance as of 05/28/2019. b. Marked decline in his ADLs with acute kidney injury and lactic acidosis prompting hospitalization at [facility] from 05/20 to 05/25/2019. c. Requiring assistance with his ADLs and all his instrumental ADLs. d. Hospitalized at [facility] [place] from 05/20 to 05/25/2019 for acute on chronic kidney injury; lactic acidosis secondary to dehydration; acute kidney injury, resolved with hydration; hypokalemia; hypercalcemia with normal parathyroid hormone. Ultrasound showed no obstructive renal disease. Atrial fibrillation. Rate controlled. Anemia. e. Improved. Ambulate with the use of a walker and contact assistance, requires some assistance with transfers as of 05/31/2019. 2. Edema of the arms, right much worse than the left. a. Resolved as of 05/27/2019. 3. Hypoalbuminemia. 4. Rheumatoid arthritis. a. Controlled on low-dose prednisone. b. Presently no pain. 5. Coronary artery disease. a. Status post coronary artery bypass x4 in 1992. b. Status post stent in June 2017. c. Presently asymptomatic. 6. History of hypertension. a. Recently his lisinopril was stopped due to too tight controlled blood pressure. 7. Frequent anterior nose bleed secondary to dry nasal mucosa and contributed to by his Plavix and aspirin. a. No recurrence of nosebleeds as of 05/28/2019. 8. Paroxysmal atrial fibrillation. 9. Hearing impairment. 10. Recent history of hypercalcemia with low albumin, possibly secondary to calcium PLAN: Continue present care. Continue PT and OT. Job ID: [id number] [facility]
--- NOTE | 2019-06-02 11:13 | PRG ---
DATE OF SERVICE: 05/29/2019 SUBJECTIVE: The patient said he is doing better. He feels stronger. He is not having any shortness of breath. He did see his strategic sourcing consultant yesterday and he did not make any changes. He thought he was doing okay and recommended he will be rechecked by him in 6 months. OBJECTIVE: GENERAL: The patient just returned to his room, walking with aid of a walker. He is now sitting in a bedside chair. He is alert, talkative, appears in no acute distress. VITAL SIGNS: Show a temperature 96.4, pulse 72, respirations 18, O2 saturation 99% on room air, and blood pressure is 121/61. His weight is stable at 146. LUNGS: Clear. HEART: Regular rate. EXTREMITIES: The edema in the arms is resolved and in the legs also. ASSESSMENT: 1. Severe generalized weakness and deconditioning. a. Ambulates with the use of a walker and contact assistance. Transferring better with contact assistance as of 05/28/2019. b. Marked decline in his ADLs with acute kidney injury and lactic acidosis prompting hospitalization at [facility] from 05/20 to 05/25/2019. c. Requiring assistance with his ADLs and all his instrumental ADLs. d. Hospitalized at [facility] at [place] from 05/20 to 05/25/2019 for acute on chronic kidney injury; lactic acidosis secondary to dehydration; acute kidney injury, resolved with hydration; hypokalemia; hypercalcemia with normal parathyroid hormone. Ultrasound showed no obstructive renal disease. Atrial fibrillation. Rate controlled. Anemia. e. Continued improvement. Ambulate with use of a walker with just contact assistance and transferring better with supervision and contact assistance as of 05/29/2019. 2. Edema of the arms, right much worse than the left. a. Resolved as of 05/27/2019. 3. Hypoalbuminemia. 4. Rheumatoid arthritis. a. Controlled on low-dose prednisone. b. Presently no pain. 5. Coronary artery disease. a. Status post coronary artery bypass x4 in 1992. b. Status post stent in June 2017. c. Presently asymptomatic. 6. History of hypertension. a. Recently his lisinopril was stopped due to too tight controlled blood pressure. 7. Frequent anterior nose bleed secondary to dry nasal mucosa and contributed to by his Plavix and aspirin. a. No recurrence of nosebleeds as of 05/29/2019. 8. Paroxysmal atrial fibrillation. 9. Hearing impairment. 10. Recent history of hypercalcemia with low albumin, possibly secondary to calcium PLAN: Continue present care. Continue PT and OT. Job ID: [id number] [facility]
--- NOTE | 2019-06-02 11:34 | PRG ---
DATE OF SERVICE: 06/01/2019 SUBJECTIVE: The patient is in Physical Therapy. He said he is doing okay this morning. OBJECTIVE: GENERAL: The patient is sitting up in a chair, alert, appears comfortable, in no distress. VITAL SIGNS: His temperature is 97, pulse 68, respirations 20, O2 saturations 95% on room air, blood pressure 124/60. LUNGS: Clear. HEART: Regular rate. EXTREMITIES: No edema. ASSESSMENT: 1. Severe generalized weakness and deconditioning. a. Ambulates with the use of a walker and contact assistance. Transferring better with contact assistance as of 05/28/2019. b. Marked decline in his ADLs with acute kidney injury and lactic acidosis prompting hospitalization at [facility] from 05/20 to 05/25/2019. c. Requiring assistance with his ADLs and all his instrumental ADLs. d. Hospitalized at [facility] [place] from 05/20 to 05/25/2019 for acute on chronic kidney injury; lactic acidosis secondary to dehydration; acute kidney injury, resolved with hydration; hypokalemia; hypercalcemia with normal parathyroid hormone. Ultrasound showed no obstructive renal disease. Atrial fibrillation. Rate controlled. Anemia. e. Improved. Ambulate with the use of a walker and contact assistance, requires some assistance with transfers as of 06/01/2019. 2. Edema of the arms, right much worse than the left. a. Resolved as of 05/27/2019. 3. Hypoalbuminemia. 4. Rheumatoid arthritis. a. Controlled on low-dose prednisone. b. Presently no pain. 5. Coronary artery disease. a. Status post coronary artery bypass x4 in 1992. b. Status post stent in June 2017. c. Presently asymptomatic. 6. History of hypertension. a. Recently his lisinopril was stopped due to too tight controlled blood pressure. 7. Frequent anterior nose bleed secondary to dry nasal mucosa and contributed to by his Plavix and aspirin. a. No recurrence of nosebleeds as of 06/01/2019. 8. Paroxysmal atrial fibrillation. 9. Hearing impairment. 10. Recent history of hypercalcemia with low albumin, possibly secondary to calcium PLAN: Continue present care. Continue PT and OT. Job ID: [id number] MTDD
[2019-06-02] MEDS: Atorvastatin Calcium 10 MG TAB PO SCH (21:35)
[2019-06-03] MEDS: predniSONE 10 MG TAB PO SCH (08:20)
[2019-06-03] MEDS: Amiodarone 200 MG TAB PO SCH (08:20)
[2019-06-03] MEDS: Polyethylene Glycol 3350 17 GM Packet PO SCH (08:20)
[2019-06-03] MEDS: Ubidecarenone 50 MG CAP PO SCH (08:20)
[2019-06-03] MEDS: Folic Acid 1 MG TAB PO SCH (08:20)
[2019-06-03] MEDS: Emollient 15 oz bottle 450 ML, Triamcinolone Acetonide 200 MG TOP SCH ×2 (08:21→20:24)
[2019-06-03] MEDS: Acetaminophen 325 MG TAB PO PRN (13:06)
[2019-06-03] MEDS: Atorvastatin Calcium 10 MG TAB PO SCH (20:24)
[2019-06-04] MEDS: Polyethylene Glycol 3350 17 GM Packet PO SCH (08:37)
[2019-06-04] MEDS: Ubidecarenone 50 MG CAP PO SCH (08:37)
[2019-06-04] MEDS: Emollient 15 oz bottle 450 ML, Triamcinolone Acetonide 200 MG TOP SCH ×2 (08:38→20:50)
[2019-06-04] MEDS: predniSONE 10 MG TAB PO SCH (08:38)
[2019-06-04] MEDS: Folic Acid 1 MG TAB PO SCH (08:38)
[2019-06-04] MEDS: Amiodarone 200 MG TAB PO SCH (08:38)
--- NOTE | 2019-06-04 10:20 | PRG ---
DATE OF SERVICE: 06/04/2019 SUBJECTIVE: The patient thinks he is doing all right. He is working with Physical Therapy. Last night, when he went into the restroom to urinate, he said his left knee just seemed to give way with him. The nurse was with him to help steady him and he was fine. The knee is not hurting. He has been up with therapy and doing fine this morning. OBJECTIVE: VITAL SIGNS: Temperature 98.1, pulse 91, respirations 16, O2 saturation 91% on room air, and blood pressure 160/71. LUNGS: Clear. HEART: Regular rate. EXTREMITIES: No edema. ASSESSMENT: 1. Severe generalized weakness and deconditioning. a. Ambulates with the use of a walker and contact assistance. Transferring better with contact assistance as of 05/28/2019. b. Marked decline in his ADLs with acute kidney injury and lactic acidosis prompting hospitalization at [facility] from 05/20 to 05/25/2019. c. Requiring assistance with his ADLs and all his instrumental ADLs. d. Hospitalized at [facility] [place] from 05/20 to 2019 for acute on chronic kidney injury; lactic acidosis secondary to dehydration; acute kidney injury, resolved with hydration; hypokalemia; hypercalcemia with normal parathyroid hormone. Ultrasound showed no obstructive renal disease. Atrial fibrillation. Rate controlled. Anemia. e. Improved. Ambulate with the use of a walker and contact assistance, requires some assistance with transfers as of 06/04/2019. 2. Edema of the arms, right much worse than the left. a. Resolved as of 05/27/2019. 3. Hypoalbuminemia. 4. Rheumatoid arthritis. a. Controlled on low-dose prednisone. b. Presently no pain. 5. Coronary artery disease. a. Status post coronary artery bypass x4 in 1992. b. Status post stent in June 2017. c. Presently asymptomatic. 6. History of hypertension. a. Recently his lisinopril was stopped due to too tight controlled blood pressure. 7. Frequent anterior nose bleed secondary to dry nasal mucosa and contributed to by his Plavix and aspirin. a. No recurrence of nosebleeds as of 06/04/2019. 8. Paroxysmal atrial fibrillation. a. Regular rate with rate controlled as of 06/04. 9. Hearing impairment. 10. Recent history of hypercalcemia with low albumin, possibly secondary to calcium 11. Chronic kidney disease. a. GFR 37 as of 06/02. Calcium 11.4 as of 06/02. PLAN: Continue present care. Continue PT/OT. I visited with the patient, let him know that he has certainly improved, but I do think that once he goes home, then he will need more assistance in the home. I think he will do very well with someone there to assist him with ADLs and instrumental ADLs. Job ID: [id number] [facility]IKUNJ
[2019-06-04] MEDS: Atorvastatin Calcium 10 MG TAB PO SCH (20:49)
[2019-06-05] MEDS: Ubidecarenone 50 MG CAP PO SCH (10:28)
[2019-06-05] MEDS: Polyethylene Glycol 3350 17 GM Packet PO SCH (10:28)
[2019-06-05] MEDS: Amiodarone 200 MG TAB PO SCH (10:28)
[2019-06-05] MEDS: Emollient 15 oz bottle 450 ML, Triamcinolone Acetonide 200 MG TOP SCH ×2 (10:29→20:58)
[2019-06-05] MEDS: Folic Acid 1 MG TAB PO SCH (10:29)
[2019-06-05] MEDS: predniSONE 10 MG TAB PO SCH (10:29)
--- NOTE | 2019-06-05 11:56 | PRG ---
DATE OF SERVICE: 06/05/2019 SUBJECTIVE: The patient said he is getting stronger. He feels better today. The patient is walking up to 250 feet with his rolling walker. He is transferring with his caregiver assist. OBJECTIVE: GENERAL: The patient is sitting in a wheelchair in Physical therapy. He is very hard of hearing, but he looks good and has no new complaints. VITAL SIGNS: Show a temperature of 97.6, pulse 76, respirations 18, O2 saturation 97%, blood pressure 155/71. LUNGS: Clear. HEART: Regular rate. EXTREMITIES: Have no edema. ASSESSMENT: 1. Severe generalized weakness and deconditioning. a. Improving. Walking further and transferring easier as of 06/05/2019. 2. Hospitalized at [facility] from 05/20/2019 to 2019 for acute on chronic kidney disease, lactic acidosis secondary to dehydration, acute kidney injury that resolved with IV hydration, hypokalemia, hypercalcemia, with normal parathyroid hormone level. Ultrasound showed no obstruction, and atrial fib with rate controlled. 3. Edema of the extremities. a. Resolved. 4. Hypoalbuminemia. 5. Rheumatoid arthritis. a. Controlled on low-dose prednisone and methotrexate. b. Presently no pain. 6. Coronary artery disease. a. Status post coronary artery bypass x4 in 1992. b. Status post stent in June 2017. c. Presently asymptomatic. 7. History of hypertension. a. His antihypertensives have been stopped due to too tight of blood pressure control. 8. History of frequent anterior nosebleed secondary to dry nasal mucosa and contributed to by his Plavix and aspirin. a. No recurrence as of 06/05/2019. 9. Paroxysmal atrial fibrillation. a. Regular rate, rate controlled as of 06/05/2019. 10. Hearing impairment. 11. Chronic kidney disease. PLAN: The patient has made good progress while he has been here in extended care. We will continue present care. Continue PT and OT. Job ID: [id number] [facility]
[2019-06-05] MEDS: Atorvastatin Calcium 10 MG TAB PO SCH (20:58)
[2019-06-06] MEDS: Ubidecarenone 50 MG CAP PO SCH (08:40)
[2019-06-06] MEDS: Amiodarone 200 MG TAB PO SCH (08:41)
[2019-06-06] MEDS: Folic Acid 1 MG TAB PO SCH (08:41)
[2019-06-06] MEDS: Polyethylene Glycol 3350 17 GM Packet PO SCH (08:41)
[2019-06-06] MEDS: Methotrexate Sodium 2.5 MG TAB PO SCH (08:41)
[2019-06-06] MEDS: Emollient 15 oz bottle 450 ML, Triamcinolone Acetonide 200 MG TOP SCH ×2 (08:42→20:25)
[2019-06-06] MEDS: predniSONE 10 MG TAB PO SCH (08:42)
[2019-06-06] MEDS: Atorvastatin Calcium 10 MG TAB PO SCH (20:25)
[2019-06-07] MEDS: Ubidecarenone 50 MG CAP PO SCH (09:26)
[2019-06-07] MEDS: predniSONE 10 MG TAB PO SCH (09:26)
[2019-06-07] MEDS: Polyethylene Glycol 3350 17 GM Packet PO SCH (09:26)
[2019-06-07] MEDS: Folic Acid 1 MG TAB PO SCH (09:27)
[2019-06-07] MEDS: Amiodarone 200 MG TAB PO SCH (09:27)
[2019-06-07] MEDS: Emollient 15 oz bottle 450 ML, Triamcinolone Acetonide 200 MG TOP SCH ×2 (09:27→20:16)
[2019-06-07] MEDS: Atorvastatin Calcium 10 MG TAB PO SCH (20:15)
[2019-06-08 06:53] LABS: #Basophils 0.1 thou/uL (0.0-0.2); #Eosinphils 0.2 thou/uL (0.0-0.7); #Lymphocytes 0.8 thou/uL (1.20-3.40); #Monocytes 0.5 thou/uL (0.11-0.59); #Neutrophils 5.2 thou/uL (1.40-6.50); %Basophils 0.9 % (0.0-1.0); %Eosinophils 2.5 % (0.0-10.0); %Lymphocytes 11.4 % (21.0-51.0); %Monocytes 7.3 % (0.0-10.0); %Neutrophils 77.9 % (42.0-75.0); Hemoglobin 11.1 g/dL (14.0-18.0); Mean Corpuscular HGB CONC 30.7 g/dL (32.0-36.0); Mean Corpuscular Hemoglobin 28.5 pg (27.0-31.0); Mean Corpuscular Volume 92.6 fL (78.0-98.0); Mean Platelet Volume 6.9 fL (7.4-10.4); Platelet Count 178 thou/uL (130-400); RBC Distribution Width 15.7 % (11.5-14.5); Red Blood Cell (RBC) Count 3.92 mill/uL (4.70-6.10); White Blood Cell (WBC) Count 6.7 thou/uL (4.8-10.8)
[2019-06-08 07:07] LABS: AST (SGOT) 13 U/L (5-34); Albumin 3.1 g/dL (3.4-4.8); Alkaline Phosphatase 76 U/L (40-110); Anion Gap 14 mmol/L (10-20); BUN (Urea Nitrogen) 37 mg/dL (8.4-25.7); Bilirubin, Total 0.3 mg/dL (0.2-1.2); Calc. Creatinine Clearance 25 mL/min (70-130); Calcium 10.8 mg/dL (7.8-10.44); Carbon Dioxide 25 mmol/L (23-31); Chloride 108 mmol/L (98-107); Estimated GFR-MDRD 34; Globulin 2.4 g/dL (2.4-3.5); Glucose 84 mg/dL (83-110); Potassium 3.9 mmol/L (3.5-5.1); Protein, Total 5.5 g/dL (5.8-8.1); Sodium 143 mmol/L (136-145)
[2019-06-08 07:19] LABS: ALT (SGPT) 16 U/L (8-55)
[2019-06-08] MEDS: Ubidecarenone 50 MG CAP PO SCH (08:56)
[2019-06-08] MEDS: Folic Acid 1 MG TAB PO SCH (08:56)
[2019-06-08] MEDS: Amiodarone 200 MG TAB PO SCH (08:57)
[2019-06-08] MEDS: Emollient 15 oz bottle 450 ML, Triamcinolone Acetonide 200 MG TOP SCH ×2 (08:57→20:54)
[2019-06-08] MEDS: predniSONE 10 MG TAB PO SCH (08:57)
[2019-06-08] MEDS: Polyethylene Glycol 3350 17 GM Packet PO SCH (08:57)
--- NOTE | 2019-06-08 09:23 | PRG ---
DATE OF SERVICE: 06/08/2019 SUBJECTIVE: The patient thinks he is doing better. He had no complaint today. OBJECTIVE: GENERAL: The patient is just walking back to his room with a walker and Physical Therapy on standby with him. He is alert and appears very comfortable , in no distress. VITAL SIGNS: Temp 97.1, pulse 70, respirations 18, O2 sat 98% on room air, and blood pressure 151/66. LUNGS: Clear. HEART: Regular rate. EXTREMITIES: No edema. LABORATORY DATA: His lab shows H and H of 11.1 and 36.3, white cell count 6700 with 78% segs, 11% lymphocytes, and platelet count of 178,000. Sodium 143, potassium 3.9, BUN 37, creatinine 1.89, GFR 34, calcium is down to 10.8, and albumin up to 3.1. ASSESSMENT: 1. Severe generalized weakness and deconditioning. a. Improving. Walking further and transferring easier as of 06/08. 2. Hospitalized at [facility] from 05/20 to 05/25/2019 for acute on chronic kidney disease, lactic acidosis secondary to dehydration, acute kidney injury that resolved with IV hydration. He also had hypokalemia and hypercalcemia with normal parathyroid hormone level. Ultrasound of the kidney showed no obstruction and with atrial fibrillation. 3. Edema of the extremities. a. Resolved. 4. Hypoalbuminemia. a. Improved with albumin up to 3.1 as of 06/08. 5. Rheumatoid arthritis. a. Controlled with methotrexate and low-dose prednisone. b. Presently no pain. 6. Coronary artery disease. a. Status post coronary artery bypass x4, 1992. b. Status post stent in June 2017. c. Presently asymptomatic. 7. History of hypertension. a. Antihypertensive medicines were stopped due to too tight of a control with orthostatic symptoms. 8. History of frequent anterior nose bleeds secondary to dry nasal mucosa and contributed to by his Plavix and aspirin. a. No recurrence as of 06/08. 9. Paroxysmal atrial fibrillation. a. Rate controlled as of 06/08. 10. Hearing impairment. 11. Chronic kidney disease. 12. Hypercalcemia, resolving as of 06/08. PLAN: Continue present care. Continue PT. We will have [facility] look in on the patient to help with his posthospital planning. Discussed this with him and he understands he is going to need help in the home. Job ID: [id number] MTDD
[2019-06-08] MEDS: Atorvastatin Calcium 10 MG TAB PO SCH (20:53)
[2019-06-09] MEDS: predniSONE 10 MG TAB PO SCH (09:17)
[2019-06-09] MEDS: Amiodarone 200 MG TAB PO SCH (09:17)
[2019-06-09] MEDS: Ubidecarenone 50 MG CAP PO SCH (09:18)
[2019-06-09] MEDS: Emollient 15 oz bottle 450 ML, Triamcinolone Acetonide 200 MG TOP SCH ×2 (09:18→20:51)
[2019-06-09] MEDS: Folic Acid 1 MG TAB PO SCH (09:18)
[2019-06-09] MEDS: Polyethylene Glycol 3350 17 GM Packet PO SCH (09:19)
[2019-06-09] MEDS: Atorvastatin Calcium 10 MG TAB PO SCH (20:49)
[2019-06-10] MEDS: Ubidecarenone 50 MG CAP PO SCH (08:27)
[2019-06-10] MEDS: Emollient 15 oz bottle 450 ML, Triamcinolone Acetonide 200 MG TOP SCH ×2 (08:27→20:18)
[2019-06-10] MEDS: predniSONE 10 MG TAB PO SCH (08:27)
[2019-06-10] MEDS: Folic Acid 1 MG TAB PO SCH (08:27)
[2019-06-10] MEDS: Amiodarone 200 MG TAB PO SCH (08:27)
[2019-06-10] MEDS: Polyethylene Glycol 3350 17 GM Packet PO SCH (08:27)
--- NOTE | 2019-06-10 09:06 | PRG ---
DATE OF SERVICE: 06/10/2019 SUBJECTIVE: The patient said he continued to make progress with his therapy. He had no complaint this morning. OBJECTIVE: GENERAL: The patient is sitting up in his chair, alert, talkative, but very hard of hearing. He appears in no distress. VITAL SIGNS: Temperature 97.3, pulse 62, respirations 16, O2 saturation 96% on room air, blood pressure 128/60. LUNGS: Clear. HEART: Regular rate. EXTREMITIES: No edema. ASSESSMENT: 1. Severe generalized weakness and deconditioning. a. Improving. Walking further and transferring easier as of 06/10. 2. Hospitalized at [facility] from 05/20, through 05/25 , for [id number] kidney disease, lactic acidosis secondary to dehydration, acute kidney injury that resolved with IV hydration. He also had hypokalemia and hypercalcemia with normal parathyroid level. Ultrasound of the kidneys showed no obstruction. In atrial fibrillation. 3. Edema of the extremities. a. Resolved. 4. Hypoalbuminemia. a. Improved with albumin up to 3.1 on 06/08. 5. Rheumatoid arthritis. a. Controlled with methotrexate and low-dose prednisone. b. Denies any pain. 6. Coronary artery disease. a. Status post coronary artery bypass x4 in 1992. b. Status post stent in June 2017. c. Presently asymptomatic. 7. History of hypertension. a. Antihypertensive medicine stopped due to too tight of control with orthostatic symptoms. 8. History of frequent anterior nosebleed secondary to dry nasal mucosa and contributed to by his Plavix and aspirin. a. No recurrence as of 06/10. 9. Paroxysmal atrial fibrillation. a. Rate controlled. 10. Hearing impairment. 11. Chronic kidney disease. 12. Hypercalcemia, resolving as of 06/08. PLAN: Continue present care. Continue PT and OT. Job ID: [id number] [facility]
[2019-06-10] MEDS: Acetaminophen 325 MG TAB PO PRN (15:11)
[2019-06-10] MEDS: Atorvastatin Calcium 10 MG TAB PO SCH (20:19)
[2019-06-11] MEDS: Polyethylene Glycol 3350 17 GM Packet PO SCH (08:31)
[2019-06-11] MEDS: predniSONE 10 MG TAB PO SCH (08:32)
[2019-06-11] MEDS: Ubidecarenone 50 MG CAP PO SCH (08:32)
[2019-06-11] MEDS: Amiodarone 200 MG TAB PO SCH (08:33)
[2019-06-11] MEDS: Emollient 15 oz bottle 450 ML, Triamcinolone Acetonide 200 MG TOP SCH ×2 (08:33→20:50)
[2019-06-11] MEDS: Folic Acid 1 MG TAB PO SCH (08:33)
--- NOTE | 2019-06-11 08:56 | PRG ---
DATE OF SERVICE: 06/11/2019 SUBJECTIVE: The patient is feeling better. He is feeling stronger. He is doing better with physical therapy. He is walking further, transferring easier. He has had no nosebleed since his admission. OBJECTIVE: GENERAL: The patient is sitting up, working with therapist in the physical therapy room. He is alert, talkative, appears very comfortable. VITAL SIGNS: His temp is 96.7, pulse at 90, respirations 20, O2 saturation 96% on room air, blood pressure 164/72. LUNGS: Clear. HEART: Regular rate. EXTREMITIES: No edema. ASSESSMENT: 1. Severe generalized weakness and deconditioning. a. Improving. Walking further and transferring easier as of 06/11. 2. Hospitalized at [facility] from 05/20 to 05/25/2019, for acute on chronic kidney disease, lactic acidosis secondary to dehydration and acute on chronic kidney disease that resolved with IV hydration. He also had hypokalemia and hypercalcemia with normal parathyroid level and ultrasound of the kidneys showing no obstruction. 3. Edema of the extremities. a. Resolved. 4. Hypoalbuminemia. a. Improved with albumin up to 3.1 on 06/08. 5. Rheumatoid arthritis. a. Controlled with methotrexate, low-dose prednisone. b. Denies any pain. 6. Coronary artery disease. a. Status post coronary artery bypass x4 in 1992. b. Status post stent in June 2017. c. Presently asymptomatic. 7. History of hypertension. a. Antihypertensives stopped due to too tight control with orthostatic symptoms. 8. History of frequent anterior nosebleed secondary to dry nasal mucosa and contributed to by his Plavix and aspirin. a. No recurrence as of 06/11. 9. Paroxysmal atrial fibrillation. a. Rate controlled. 10. Hearing impairment. 11. Chronic kidney disease. 12. Hypercalcemia, resolved as of 06/08. PLAN: Continue present care. Continue PT and OT. Job ID: [id number] [facility]
[2019-06-11 10:35] VITALS: BMI 19.9
[2019-06-11] MEDS: Atorvastatin Calcium 10 MG TAB PO SCH (20:50)
[2019-06-12] MEDS: Ubidecarenone 50 MG CAP PO SCH (08:31)
[2019-06-12] MEDS: Polyethylene Glycol 3350 17 GM Packet PO SCH (08:32)
[2019-06-12] MEDS: Folic Acid 1 MG TAB PO SCH (08:32)
[2019-06-12] MEDS: Amiodarone 200 MG TAB PO SCH (08:32)
[2019-06-12] MEDS: predniSONE 10 MG TAB PO SCH (08:32)
[2019-06-12] MEDS: Emollient 15 oz bottle 450 ML, Triamcinolone Acetonide 200 MG TOP SCH ×2 (08:33→20:09)
[2019-06-12] MEDS: Atorvastatin Calcium 10 MG TAB PO SCH (20:08)
[2019-06-13] MEDS: Folic Acid 1 MG TAB PO SCH (08:49)
[2019-06-13] MEDS: Methotrexate Sodium 2.5 MG TAB PO SCH (08:49)
[2019-06-13] MEDS: Ubidecarenone 50 MG CAP PO SCH (08:50)
[2019-06-13] MEDS: Emollient 15 oz bottle 450 ML, Triamcinolone Acetonide 200 MG TOP SCH ×2 (08:50→21:11)
[2019-06-13] MEDS: predniSONE 10 MG TAB PO SCH (08:50)
[2019-06-13] MEDS: Polyethylene Glycol 3350 17 GM Packet PO SCH (08:50)
[2019-06-13] MEDS: Amiodarone 200 MG TAB PO SCH (08:50)
[2019-06-13] MEDS: Atorvastatin Calcium 10 MG TAB PO SCH (21:11)
[2019-06-14] MEDS: predniSONE 10 MG TAB PO SCH (08:08)
[2019-06-14] MEDS: Ubidecarenone 50 MG CAP PO SCH (08:09)
[2019-06-14] MEDS: Emollient 15 oz bottle 450 ML, Triamcinolone Acetonide 200 MG TOP SCH ×2 (08:09→21:23)
[2019-06-14] MEDS: Folic Acid 1 MG TAB PO SCH (08:09)
[2019-06-14] MEDS: Polyethylene Glycol 3350 17 GM Packet PO SCH (08:09)
[2019-06-14] MEDS: Amiodarone 200 MG TAB PO SCH (08:09)
[2019-06-14] MEDS: Atorvastatin Calcium 10 MG TAB PO SCH (21:23)
[2019-06-15 07:00] VITALS: BP 129/65; TEMP 97.7
[2019-06-15] MEDS: Folic Acid 1 MG TAB PO SCH (08:55)
[2019-06-15] MEDS: Ubidecarenone 50 MG CAP PO SCH (08:55)
[2019-06-15] MEDS: predniSONE 10 MG TAB PO SCH (08:55)
[2019-06-15] MEDS: Amiodarone 200 MG TAB PO SCH (08:55)
[2019-06-15] MEDS: Polyethylene Glycol 3350 17 GM Packet PO SCH (08:56)
[2019-06-15] MEDS: Emollient 15 oz bottle 450 ML, Triamcinolone Acetonide 200 MG TOP SCH (08:56)
--- NOTE | 2019-06-16 07:18 | DIS ---
DATE OF ADMISSION: 05/25/2019 DATE OF DISCHARGE: 06/15/2019 FINAL DIAGNOSES: 1. Severe generalized weakness and deconditioning. a. Marked improvement, walking independently with a walker. Transferring independent as of 06/15/2019. 2. Hospitalized at [facility] from 05/20/2019 to 05/25/2019 for [id number] kidney disease, lactic acidosis secondary to dehydration, hypokalemia, hypercalcemia, acute kidney failure, resolved with IV hydration and had a normal parathyroid level. Ultrasound of the kidney showed no obstruction. 3. Edema of the extremities, resolved. 4. Hypoalbuminemia. a. Improved albumin of 3.1 on 06/08/2019. 5. Rheumatoid arthritis. a. Controlled with methotrexate, low-dose prednisone. b. Denies any pain. 6. Coronary artery disease. a. Status post coronary artery bypass x4 in 1992. b. Status post stent June 2017. c. Presently asymptomatic. 7. History of hypertension. a. Antihypertensives stopped due to too tight of a control with orthostatics symptoms. 8. History of frequent anterior nose bleed secondary to dry nasal mucosa and contributed to by his Plavix and aspirin. a. No recurrence as of 06/15. 9. Paroxysmal atrial fibrillation. a. Rate controlled. 10. Hearing impairment. 11. Chronic kidney disease. 12. Hypercalcemia, resolved. SUMMARY: The patient is an 89-year-old white male, who has a history of coronary artery disease, paroxysmal atrial fibrillation, hypertension, and rheumatoid arthritis and chronic kidney disease. In the past, he has been on anticoagulants for the atrial fib, but this was stopped due to his frequent falls. He has coronary artery disease, but has been asymptomatic. He has a history of hypertension, but his medicines were stopped due to too tight control with severe orthostatic symptoms contributing to his falls. He also has a history of very frequent anterior nose bleeds for which he has undergone numerous cauterizations. This has been contributed to by the dry mucosa and the aspirin and Plavix, both of which we will stop. The patient had been going through a continual gradual decline. He ended up hospitalized at [facility] from 05/20 to 05/25 for [id number] kidney disease, lactic acidosis secondary to dehydration and renal failure. This resolved with IV hydration. The hypokalemia resolved. Ultrasound of the kidneys showed no evidence of obstruction and his parathyroid hormone was normal. He developed a lot of edema in his extremities, upper and lower. He gradually improved, but was left extremely weak and deconditioned. [facility] for purpose of physical therapy and occupational therapy. When initially seen, patient was extremely weak, was requiring assistance with all his ADLs and had moderate edema in his arms, particularly at the elbow and his legs. The edema gradually resolved with elevation of the arm. He had some irritation to the skin that had resolved with application of Blaire lotion with Kenalog. Physical Therapy worked with him and he showed continual gradual improvement to where he was walking up to 200 feet several times a day with a rolling walker and just caregiver assist. He was transferring independently. Occupational therapy said during his stay he showed marked improvement, was able to dress himself, but slowly and was able to give a shower with standby assistance. He had no nose bleeds during his hospitalizations. Rate of his atrial fib was well controlled. He had no hypertensive issues. By 06/15/2019, he was doing well and said he felt like he could manage now fine at home. His lives at home where he has been cared for by 3 caregivers that these ladies will also be there to assist Mr. Storm. Arrangements will be made for the patient to have in-home physical therapy through Home Health. The patient was discharged in good condition on 06/15/2019. DISPOSITION: DIET: Regular diet, no added salt. MEDICATIONS: 1. Tylenol 325 mg two every 4 hours as needed. 2. Amiodarone 100 mg daily. 3. Atorvastatin 10 mg at bedtime. 4. CoQ10 200 mg daily. 5. Folic acid 1 mg daily. 6. Methotrexate 2.5 mg three tablets weekly on Saturdays. 7. Blaire lotion 15 ounces/Kenalog 200 mg apply sparingly to the skin when it itches twice today. 8. Utilize moisturizer on the skin daily. 9. Nitroglycerin 0.4 mg sublingual p.r.n. chest pain. 10. Pantoprazole 40 mg daily. 11. MiraLAX 17 g with 8 ounces of water daily. 12. Prednisone 5 mg daily. 13. [place] Mist nasal spray every 4 hours as needed. FOLLOWUP: The patient will be seen in followup in my office in 2 weeks with a CBC, CMP, and lipid panel. Home Health will see patient and arrange for in-home PT. CODE STATUS: DNR. Job ID: [id number] MTDD
== END 2019-06-15 12:14 | disposition home or self-care (01) | DRG 683 ==
LOC: MADMS 16:35
PROVIDERS: ADMIT Family Medicine; ATTEND Family Medicine
DX: N17.9 Acute kidney failure, unspecified (principal); E87.2 Acidosis; R53.1 Weakness; I25.10 Atherosclerotic heart disease of native coronary artery without angina pectoris; M06.9 Rheumatoid arthritis, unspecified; I12.9 Hypertensive chronic kidney disease with stage 1 through stage 4 chronic kidney disease, or unspecified chronic kidney disease; N18.9 Chronic kidney disease, unspecified; R53.81 Other malaise; E87.6 Hypokalemia; Z95.1 Presence of aortocoronary bypass graft; K21.9 Gastro-esophageal reflux disease without esophagitis; E78.5 Hyperlipidemia, unspecified; Z88.0 Allergy status to penicillin; Z88.5 Allergy status to narcotic agent; Z88.8 Allergy status to other drugs, medicaments and biological substances; E83.52 Hypercalcemia; I48.0 Paroxysmal atrial fibrillation; J32.9 Chronic sinusitis, unspecified; D64.9 Anemia, unspecified
CPT/HCPCS: 36415; 80048; 80053; 85025; J3301; J7512; J8610

== ENCOUNTER 2019-08-26 12:42 | Outpatient (CLI) | payer MEDICARE, OTHER ==
[2019-08-26 13:08] LABS: #Basophils 0.1 thou/uL (0.0-0.2); #Eosinphils 0.1 thou/uL (0.0-0.7); #Lymphocytes 0.4 thou/uL (1.20-3.40); #Monocytes 0.2 thou/uL (0.11-0.59); #Neutrophils 5.4 thou/uL (1.40-6.50); %Eosinophils 1.3 % (0.0-10.0); %Monocytes 3.1 % (0.0-10.0); %Neutrophils 87.7 % (42.0-75.0); Hemoglobin 11.8 g/dL (14.0-18.0); Mean Corpuscular HGB CONC 32.7 g/dL (32.0-36.0); Mean Corpuscular Hemoglobin 29.9 pg (27.0-31.0); Mean Corpuscular Volume 91.4 fL (78.0-98.0); Mean Platelet Volume 7.7 fL (7.4-10.4); Platelet Count 155 thou/uL (130-400); Red Blood Cell (RBC) Count 3.94 mill/uL (4.70-6.10); White Blood Cell (WBC) Count 6.2 thou/uL (4.8-10.8)
[2019-08-26 13:19] LABS: ALT (SGPT) 15 U/L (8-55); AST (SGOT) 19 U/L (5-34); Albumin 3.9 g/dL (3.4-4.8); Alkaline Phosphatase 101 U/L (40-110); Anion Gap 14 mmol/L (10-20); BUN (Urea Nitrogen) 27 mg/dL (8.4-25.7); Bilirubin, Total 0.4 mg/dL (0.2-1.2); CRP (Inflammatory) 2.18 mg/dL (= or < 0.5); Calc. Creatinine Clearance 0 mL/min (70-130); Calcium 8.7 mg/dL (7.8-10.44); Carbon Dioxide 25 mmol/L (23-31); Chloride 106 mmol/L (98-107); Estimated GFR-MDRD 41; Globulin 2.2 g/dL (2.4-3.5); Glucose 154 mg/dL (83-110); Potassium 4.3 mmol/L (3.5-5.1); Protein, Total 6.1 g/dL (5.8-8.1); Sodium 141 mmol/L (136-145)
== END 2019-08-26 12:43 | disposition home or self-care (01) ==
LOC: MADLAB 12:42
DX: I25.10 Atherosclerotic heart disease of native coronary artery without angina pectoris (principal)
CPT/HCPCS: 80053; 85025; 85652; 86140